=== PATIENT | female | born 1980 ===

== ENCOUNTER 2017-01-26 07:23 | Day surgery (SDC) | payer SELFPAY ==
[2017-01-26 08:03] VITALS: RESP 18
[2017-01-26 08:13] VITALS: BMI 24.3
[2017-01-26] MEDS ORDERED: Propofol 10 mg/ml Inj (20 ML) ONE (08:49)
[2017-01-26] MEDS ORDERED: Midazolam 2 MG/2 ML VIAL ONE (08:50)
[2017-01-26] MEDS ORDERED: Silver Nitrate Topical - Stick ONE (09:13)
[2017-01-26] MEDS ORDERED: Lactated Ringer's 1,000 ML IV ONE (09:20)
[2017-01-26] MEDS ORDERED: Sodium Chloride 0.9% 100 ML IV ONE (09:33)
[2017-01-26] MEDS ORDERED: Dexamethasone 4 mg/1 ml ONE (09:39)
[2017-01-26] MEDS ORDERED: Lactated Ringer's 1,000 ML IV SCH (11:00)
[2017-01-26] MEDS ORDERED: HYDROmorphone 0.5 mg/0.5 ml ISec IVP PRN (11:00)
[2017-01-26 13:58] VITALS: BP 100/64; PULSE 89; TEMP 98.3; O2SAT 99
--- NOTE | 2017-02-01 17:09 | OP ---
PROCEDURE DATE: PREOPERATIVE DIAGNOSIS: Abnormal uterine bleeding with endometrial polyp. POSTOPERATIVE DIAGNOSIS: Abnormal uterine bleeding with endometrial polyp. PROCEDURE: Hysteroscopy, D and C, polypectomy with MyoSure. SURGEON: Giovana Pritchett MD. AREA SECRETARY: Dr. Marielena Agosto, PGY-2. TYPE OF ANESTHESIA: General. INTRAVENOUS FLUIDS: 600 mL of lactated Ringer's. DISTENSION MEDIA: Normal saline with fluid deficit of 450 mL. ESTIMATED BLOOD LOSS: 10 mL. COMPLICATIONS: None. SPECIMEN: Endometrial curettings and endometrial polyp. FINDINGS: Exam under anesthesia revealed a normal-size anteverted uterus with normal contour and normal bilateral adnexa. On hysteroscopic evaluation, it showed an endometrial polyp on the right lateral wall approximately 2.5 cm. Otherwise, normal endometrium was seen, and the uterine cavity and bilateral tubal ostia appeared grossly normal. DESCRIPTION OF PROCEDURE: The patient was taken to the operating room and given general anesthesia without difficulty. She was then placed in dorsal lithotomy position using Beck stirrups and then exam under anesthesia revealed the findings as above. The patient was then prepped and draped in normal sterile fashion. A weighted speculum was then inserted into the posterior aspect of the vagina. The bladder was then drained of approximately 25 mL clear using a red rubber catheter. The cervix was then visualized and a single tooth tenaculum was then used to grasp the anterior lip of the cervix. The uterus was carefully sounded to 9 cm. The cervical os was then sequentially dilatated to accommodate the hysteroscope, which was introduced under direct visualization. The uterus was then distended with normal saline and the aforementioned findings were noted. The MyoSure device was then introduced through the hysteroscope and was enabled for removal of the endometrial polyp. Following this, the hysteroscope was withdrawn and the cervix was further dilated to accommodate a large sharp curette. The uterus was curetted in a clockwise fashion until a gritty texture was noted in all aspects of the uterus. The polyp and endometrial scrapings were then sent to Pathology. The tenaculum was then removed from the cervix and good hemostasis was achieved at the puncture site using pressure and silver nitrate. All instruments were removed. The patient tolerated the procedure well. The instruments and sponge counts were correct x2. The patient was awakened from general anesthesia and taken to recovery room in stable condition. The patient will go home after recovering from anesthesia and meeting all criteria for discharge. She was given instructions regarding followup in 2 weeks at the [facility] and a prescription for pain medication. Giovana Pritchett MD
== END 2017-01-26 14:09 | disposition home or self-care (01) ==
LOC: H.OPSURG 07:23
PROVIDERS: ATTEND Obstetrics & Gynecology
DX: D25.0 Submucous leiomyoma of uterus (principal); N84.0 Polyp of corpus uteri
CPT/HCPCS: 58558; 88305; J0690; J1100; J1885; J2001; J2250; J2405; J2704; J3010; J7030; J7120

== ENCOUNTER 2017-03-17 12:17 | Emergency (ER) | payer SELFPAY ==
[2017-03-17 12:17] VITALS: BMI 24.3
[2017-03-17 12:59] VITALS: RESP 18; TEMP 97.9
[2017-03-17 13:46] LABS: BASO # 0.1 K/uL (0.0-0.2); BASO % 0.8 % (0.0-2.0); EOS # 0.1 K/uL (0.0-0.7); EOS % 1.1 % (0.0-4.0); HEMATOCRIT 32.3 % (34.0-47.0); LYMPH # 2.4 K/uL (1.0-4.3); MEAN CELL VOLUME 75.4 fl (81.0-99.0); MEAN CORPUSCULAR HEMOGLOBIN 24.3 pg (27.0-31.0); MEAN CORPUSCULAR HGB CONC 32.2 g/dL (33.0-37.0); MEAN PLATELET VOLUME 10.5 fl (7.2-11.7); MONO # 0.7 K/uL (0.0-0.8); MONO % 6.6 % (0.0-10.0); NEUT # 6.8 K/uL (1.8-7.0); NEUT % 67.5 % (50.0-75.0); NRBC % 0.1 % (0.0-0.0); RED CELL DISTRIBUTION WIDTH 16.3 % (11.5-14.5)
--- NOTE | 2017-03-17 15:19 | ED PDOC ---
HPI: Female Pain Time Seen by Provider: 03/17/17 13:18 Chief Complaint (Nursing): Female Genitourinary History Per: Patient (36 Y/O FEMALE S/P D &C POLYPECTOMY 01/26/[address] MOLINA HERE WITH INTERMITTENT BLEEDING SINCE. NOTES BLEEDING X 4 DAYS. WAS ADVISED TO COME TO ED WHEN TRYING TO MAKE APPT FOR F/U.) Past Medical History Reviewed: Historical Data, Nursing Documentation, Vital Signs Vital Signs: Last Vital Signs Temp 97.9 F 03/17/17 12:55 Pulse 86 03/17/17 12:55 Resp 18 03/17/17 12:55 BP 118/85 03/17/17 12:55 Pulse Ox 99 03/17/17 12:55 - Medical History PMH: Depression - Family History Family History: States: No Known Family Hx - Home Medications Home Medications: Ambulatory Orders Medication Instructions Recorded Ibuprofen [Motrin Tab] 600 mg PO PRN PRN #0 01/26/17 - Allergies Allergies/Adverse Reactions: Allergies Allergy/AdvReac Type Severity Reaction Status Date / Time No Known Allergies Allergy Verified 03/17/17 12:54 Review of Systems ROS Statement: Except As Marked, All Systems Reviewed And Found Negative Physical Exam - Reviewed Nursing Documentation Reviewed: Yes Vital Signs Reviewed: Yes - Physical Exam Appears: Positive for: Well, Non-toxic, No Acute Distress Head Exam: Positive for: ATRAUMATIC, NORMAL INSPECTION, NORMOCEPHALIC Skin: Positive for: Normal Color, Warm, DRY Eye Exam: Positive for: EOMI, Normal appearance, PERRL ENT: Positive for: Normal ENT Inspection Neck: Positive for: Normal, Painless ROM Cardiovascular/Chest: Positive for: Regular Rate, Rhythm Respiratory: Positive for: CNT, Normal Breath Sounds Gastrointestinal/Abdominal: Positive for: Normal Exam, Bowel Sounds, Soft Pelvic Exam: Positive for: Active Bleeding Back: Positive for: Normal Inspection Extremity: Positive for: Normal ROM Neurologic/Psych: Positive for: Alert, Oriented - Laboratory Results Result Diagrams: 03/17/17 13:38 Urine POC: Negative - ECG O2 Sat by Pulse Oximetry: 99 Disposition - Clinical Impression Clinical Impression: Vaginal bleeding - Patient ED Disposition Is Patient to be Admitted: No - Disposition [facility] Disposition: Routine/Home Disposition Time: 15:19 Condition: FAIR Instructions: Dysfunctional Uterine Bleeding (ED) Forms: [employer] (Upper Sorbian) Print Language: GRENADIAN
[2017-03-17 15:31] VITALS: BP 111/67; PULSE 80; O2SAT 100
== END 2017-03-17 15:46 | disposition home or self-care (01) ==
LOC: H.ER 12:17
DX: N93.9 Abnormal uterine and vaginal bleeding, unspecified (principal); F32.9 Major depressive disorder, single episode, unspecified